=== PATIENT | female | born 1970 | race Caucasian/White ===

== ENCOUNTER 2020-09-10 07:42 | Outpatient (CLI) | payer OTHER, SELFPAY ==
--- NOTE | ~2020-09-10 | MM_ITS ---
EXAMINATION: MM screening [facility] BI w cb HISTORY: Screening mammogram TECHNIQUE: Craniocaudal and mediolateral oblique 3-D tomosynthesis images were obtained and synthetic 2-D images were generated. CAD analysis was submitted and interpreted. COMPARISON: 05/02/2019, 12/01/2015, 11/28/2014, 10/24/2014 BREAST PARENCHYMAL COMPOSITION: The breasts are almost entirely fatty. FINDINGS: A stable focal asymmetry in the upper outer quadrant of the right breast is considered collette gn given the lack of interval change. There is no evidence of suspicious mass, calcification, or arch itectural distortion to suggest malignancy in either breast. There has been no suspicious interval ch lizeth. IMPRESSION: 1. No mammographic evidence of malignancy. 2. Recommend routine screening mammography in one year. BI-RADS Category 2: Benign finding(s). Reviewed, dictated and finalized at location A.
== END 2020-09-10 07:43 | disposition home or self-care (01) ==
LOC: ANHIMG 07:44
PROVIDERS: PCP Internal Medicine; Visit Provider Student in an Organized Health Care Education/Training Program
DX: Z12.31 Encounter for screening mammogram for malignant neoplasm of breast (principal)
CPT/HCPCS: 77063; 77067

== ENCOUNTER 2022-04-08 16:46 | Outpatient (CLI) | payer OTHER, SELFPAY ==
--- NOTE | ~2022-04-08 | MM_ITS ---
EXAMINATION: MM screening [facility] BI w cb HISTORY: Screening mammogram TECHNIQUE: Craniocaudal and mediolateral oblique 3-D tomosynthesis images were obtained and synthetic 2-D images were generated. CAD analysis was submitted and interpreted. COMPARISON: 09/10/2020, 05/02/2019, 12/01/2015 bilateral screening mammogram examinations 11/28/2014 diagnostic right mammogram and limited right breast ultrasound 10/24/2014 bilateral screening mammogram BREAST PARENCHYMAL COMPOSITION: The breasts are almost entirely fatty. FINDINGS: Chronic small focal asymmetry density in the upper outer right breast since 11/28/2014, with out sonographic correlate on 11/28/2014 ultrasound and without significant change compared to current examination since 10/24/2014. There is no evidence of suspicious mass, calcification, or architectura l distortion to suggest malignancy in either breast. There has been no suspicious interval change. IMPRESSION: 1. No mammographic evidence of malignancy. 2. Recommend routine screening mammography in one year. BI-RADS Category 2: Benign finding(s). Reviewed, dictated and finalized at location A.
--- NOTE | ~2022-04-08 | DEXA_ITS ---
Bone Density Report Name: ALEXUS العلي Age: 51 Sex: Female Ethnicity: White Date of : 1970 Indication: screening for osteoporosis; height loss; Referring Provider: VIVIAN*, JOE Adamson Study: Bone densitometry was performed. Exam Date: April 08, 2022 Accession number: [id number] Bone Density: Region BMD T-score Z-score Classification AP Spine(L1-L4) 0.892 -1.4 -0.5 Osteopenia Femoral Neck (Left) 0.808 -0.4 0.5 Normal Total Hip (Left) 0.911 -0.3 0.3 Normal Femoral Neck (Right) 0.744 -0.9 0.0 Normal Total Hip (Right) 0.912 -0.2 0.3 Normal Total Hip Mean 0.912 -0.3 0.3 Normal World Health Organization criteria for BMD impression classify patients as: Normal (T-score at or above -1.0), Osteopenia (T-score between -1.0 and -2.5), or Osteoporosis (T-score at or below -2.5). 10-year Fracture Risk: FRAX not reported because: Premenopausal woman Clinical Information Provided by Patient: Patient maximum height was 64.5 No regular weight bearing exercise Drinks caffeinated beverages Onset of menses at age 12 Premenopausal Number of children 1 Missed period for more than 6 months in a row Impression: The patient's bone mass is within expected range for age, gender and ethnicity. Discussion: BONE DENSITY IS WITHIN EXPECTED LIMITS FOR AGE, SEX AND RACE. Bone density is within expected limits for age, sex and race at all sites measured. The patient should follow a healthful lifestyle (good nutrition with adequate calcium and vitamin D, and appropriate weight-bearing exercise). Follow-Up: Consider repeating this study in 2 to 3 years to reassess this patient's status, or sooner if there is some new clinical indication. Reported by: JC on 04/08/2022 5:26:00 PM. Reviewed, dictated and finalized at location A. AVERY
== END 2022-04-08 16:47 | disposition home or self-care (01) ==
PROVIDERS: PCP Internal Medicine; Visit Provider Internal Medicine
DX: Z12.31 Encounter for screening mammogram for malignant neoplasm of breast (principal); M81.0 Age-related osteoporosis without current pathological fracture; M85.88 Other specified disorders of bone density and structure, other site
CPT/HCPCS: 77063; 77067; 77080

== ENCOUNTER 2023-03-08 16:10 | Emergency (ER) | payer OTHER, SELFPAY ==
--- NOTE | ~2023-03-08 | XR_ITS ---
EXAMINATION: XR chest 2V DATE: 03/08/2023 16:47 INDICATION: Left scapular pain TECHNIQUE: Frontal and lateral views of the chest are obtained COMPARISON: None available FINDINGS: The lungs are free of acute opacities. No pleural effusion or pneumothorax. The cardiomedia stinal silhouette is normal. There is moderate thoracic spondylosis. Thoracic dextroscoliosis is note d. IMPRESSION: 1. No acute cardiopulmonary abnormality. Reviewed, dictated and finalized at location L.
[2023-03-08 16:14] VITALS: BP 155/99; PULSE 72; RESP 16; TEMP 36.2; O2SAT 98
--- NOTE | 2023-03-08 16:39 | ED.BACK ---
HPI - Back Pain/Injury General Chief Complaint: Back Pain/Injury Stated Complaint: left sided back pain Time Seen by Provider: 03/08/23 16:23 History of Present Illness HPI Narrative: 52-year-old female here for evaluation of left-sided low back pain x1 month. Patient states that she saw her primary care doctor upon onset of her symptoms. Plain films of the spine and urinalysis were normal. Pain was attributed to a MSK sprain. She was prescribed steroids and baclofen, states her symptoms have only minimally improved. She contacted her primary doctor today about her continued symptoms, states the doctor recommended PT which upset the patient and she decided to come to the ED because she states I want answers today and physical therapy is not going to work . No dysuria, urgency, frequency, nausea, vomiting, incontinence or retention of bowel or bladder, saddle anesthesia. No chest pain, SOB, fevers. Related Data Allergies Allergy/AdvReac Type Severity Reaction Status Date / Time No Known Allergies Allergy Verified 03/08/23 16:49 Review of Systems Review of Systems: Gen: Denies fevers or chills Eyes: Denies eye pain or visual change ENT: Denies congestion Respiratory: Denies shortness of breath or cough CV: Denies chest pain or palpitations GI: Denies abdominal pain nausea, emesis or diarrhea : denies burning, urgency, frequency or hematuria Musculoskeletal: Reports back pain Neuro: Denies numbness, tingling, weakness or focal weakness Skin: Denies rash Except as documented, all other systems reviewed and negative PMFSH Surgical History Surgical History History of cholecystectomy Previous section Welsh teeth removed Family History Family History Mother Diabetes mellitus Patient's mother is in good health Father Patient's father is in good health Family history of kidney disease Social History Social History Smoking status: Never smoker Second hand tobacco smoke exposure: No Alcohol intake: current Exam Narrative: APPEARANCE: Well appearing, no pain in distress, well-nourished. Obese. Head: Normocephalic and atraumatic. EYES: PERRLA/EOMI, conjunctivae clear NOSE: No nasal drainage EARS: External ear normal in appearance THROAT: Oropharynx is clear. Mucous membranes are moist. NECK: Supple. No adenopathy, no masses. RESPIRATORY: Airway patent, respirations nonlabored. Clear to auscultation bilaterally, no rales, rhonchi, wheezing. CARDIOVASCULAR: Regular rate and rhythm without murmurs, rubs, or gallops. ABDOMINAL: Normoactive bowel sounds. Soft, nontender, nondistended. No rebound tenderness or guarding. MUSCULOSKELETAL: There is no midline tenderness to palpation along the C, T or L-spine. There is paraspinal muscle tenderness along the paraspinal musculature of the left thoracic spine. She has pain elicited in that area with range of motion of the thorax. Straight leg raise is negative bilaterally. 5 out of 5 strength in bilateral upper and lower extremities. FROM in both arms. NEURO: Normal speech. No focal neurologic deficits. SKIN: Skin is warm and dry. No rashes. PSYCHIATRIC: Normal affect/mood. Course Vital Signs Vital signs: Vital Signs Temperature 97.1 F L 03/08/23 16:14 Pulse Rate 72 03/08/23 16:14 Respiratory Rate 16 03/08/23 16:14 Blood Pressure 155/99 H 03/08/23 16:14 Pulse Oximetry 98 03/08/23 16:14 Oxygen Delivery Room Air 03/08/23 16:14 Temperature 97.1 F L 03/08/23 16:14 Pulse Rate 72 03/08/23 16:14 Respiratory Rate 16 03/08/23 16:14 Blood Pressure 155/99 H 03/08/23 16:14 Pulse Oximetry 98 03/08/23 16:14 Oxygen Delivery Room Air 03/08/23 16:14 MDM - Back Pain/Injury MDM Narrative Medical decision making narrative: 52 year old female here for e
[2023-03-08] MEDS: LIDOCAINE 5% PATCH 1 PATCH TRANSDERM (16:49)
[2023-03-08] MEDS: KETOROLAC 30 MG/ML VIAL (*BKC) IM (16:50)
== END 2023-03-08 18:14 | disposition home or self-care (01) ==
PROVIDERS: Emergency Provider Physician Assistant; PCP Internal Medicine
DX: S33.5XXA Sprain of ligaments of lumbar spine, initial encounter (principal); X58.XXXA Exposure to other specified factors, initial encounter
CPT/HCPCS: 71046; 96372; 99283; A9270; J1885

== ENCOUNTER 2025-04-30 16:18 | Outpatient (CLI) | payer OTHER, SELFPAY ==
--- NOTE | ~2025-04-30 | MM_ITS ---
EXAMINATION: MM screening [facility] BI w cb HISTORY: Screening TECHNIQUE: Craniocaudal and mediolateral oblique 3-D tomosynthesis images were obtained and synthetic 2-D images were generated. CAD analysis was submitted and interpreted. COMPARISON: Comparison to multiple prior studies sequentially, with oldest reviewed study dated 12/01. BREAST PARENCHYMAL COMPOSITION: Not Dense: The breasts are almost entirely fatty. FINDINGS: There is no evidence of suspicious mass, calcification, or architectural distortion to sugg est malignancy in either breast. There has been no suspicious interval change. IMPRESSION: 1. No mammographic evidence of malignancy. 2. Recommend routine screening mammography in one year. BI-RADS Category 1: Negative Reviewed, dictated and finalized at location A.
== END 2025-04-30 16:19 | disposition home or self-care (01) ==
PROVIDERS: PCP Internal Medicine; Visit Provider Internal Medicine
DX: Z12.31 Encounter for screening mammogram for malignant neoplasm of breast (principal)
CPT/HCPCS: 77063; 77067

== ENCOUNTER 2025-07-10 07:32 | Outpatient (CLI) | payer OTHER, SELFPAY ==
--- NOTE | ~2025-07-10 | DEXA_ITS ---
Bone Density Report Name: ALEXUS العلي Age: 54 Sex: Female Ethnicity: White Date of : 1970 Indication: osteopenia; Referring Provider: VIVIAN*, JOE Adamson Study: Bone densitometry was performed. Exam Date: July 10, 2025 Accession number: [id number] Bone Density: Region BMD T-score Z-score Classification AP Spine(L1-L4) 0.846 -1.8 -0.7 Osteopenia Femoral Neck (Left) 0.575 -2.5 -1.4 Osteoporosis Total Hip (Left) 0.855 -0.7 0.0 Normal Femoral Neck (Right) 0.883 0.3 1.4 Normal Total Hip (Right) 1.020 0.6 1.4 Normal Total Hip Mean 0.937 0.0 0.7 Normal World Health Organization criteria for BMD impression classify patients as: Normal (T-score at or above -1.0), Osteopenia (T-score between -1.0 and -2.5), or Osteoporosis (T-score at or below -2.5). 10-year Fracture Risk: FRAX not reported because: Some T-score for Spine Total or Hip Total or Femoral Neck at or below -2.5 Previous Exams: Region Exam Age BMD T-score BMD Change BMD Change Date g/cm2 vs Baseline vs Previous AP Spine (L1-L4) 07/10/2025 54 0.846 -1.8 -0.046 (-5.2%) -0.046 (-5.2%) 04/08/2022 51 0.892 -1.4 Total Hip(Left) 07/10/2025 54 0.855 -0.7 -0.056 (-6.2%) -0.056 (-6.2%) 04/08/2022 51 0.911 -0.3 Total Hip(Right) 07/10/2025 54 1.020 0.6 0.108 (11.8%)* 0.108 (11.8%)* 04/08/2022 51 0.912 -0.2 *Denotes significance at 95% confidence level, LSC for AP Spine = 0.022 g/cm2, LSC for Total Hip = 0.027 g/cm2 # Denotes dissimilar scan types or analysis methods Clinical Information Provided by Patient: Has used the following medications: Calcium Patient maximum height was 64.0 Does not regularly consume dairy products Drinks caffeinated beverages Onset of menses at age 12 Number of children 1 Missed period for more than 6 months in a row Impression: The patient has osteoporosis, based on the Left Femoral Neck T-score. The BMD for the Total Hip(Left) decreased, changing by -6.2% since the last DXA exam. Discussion: INCREASED RISK OF FRACTURE. BONE DENSITY IS UNDESIRABLY LOW AT ONE OR MORE SKELETAL SITES, CONSISTENT WITH POSTMENOPAUSAL OSTEOPOROSIS. This patient's lowest T-score meets the World Health Organization's (WHO) criteria for osteoporosis at one or more sites (T-score -2.5 or below). In untreated patients, the risk of osteoporotic fracture increases approximately two-fold for each 1.0 SD decrease in T-score. Low bone density is not the only risk factor for fracture; also consider factors such as patient's age, frailty or poor health, risk of falling, risk of injury, previous osteoporotic fracture, family history of osteoporosis, cigarette smoking, low body weight, etc. Not everyone with low bone mineral density has osteoporosis; osteomalacia and other metabolic bone disorders should also be considered. Patients who have osteoporosis should be evaluated for specific diseases and conditions (secondary causes) that may cause or contribute to bone loss. The [place] [employer]ocrin[employer] (AACE) and National Osteoporosis Foundation (NOF) recommend pharmacologic intervention for all postmenopausal women whose T-score is in this range. The patient should follow a healthful lifestyle (good nutrition with adequate calcium and vitamin D, and appropriate weight-bearing exercise). Follow-Up: Consider a repeat BMD and Vertebral Fracture Assessment (VFA) exam in 2 years or sooner if medically necessary, to reassess this patient's status. Reported by: SUZETTE on 07/10/2025 8:21:00 AM. Reviewed, dictated and finalized at location A.
== END 2025-07-10 07:33 | disposition home or self-care (01) ==
PROVIDERS: PCP Internal Medicine; Visit Provider Internal Medicine
DX: M81.0 Age-related osteoporosis without current pathological fracture (principal); M85.88 Other specified disorders of bone density and structure, other site
CPT/HCPCS: 77080